=== PATIENT | female | born 1970 | race Caucasian/White ===

== ENCOUNTER 2018-12-08 22:40 | Observation (INO) | payer OTHER ==
[~2018-12-08] VITALS: Ht 180.3 cm; Wt 83.9 kg
[2018-12-08 22:45] VITALS: BP_SYST 162
[2018-12-08 23:27] LABS: BASOPHILS % (AUTO) 0.2 % (0.0-2.0); EOSINOPHILS # (AUTO) 0.2 K/uL (0.0-0.4); EOSINOPHILS % (AUTO) 2.4 % (0.0-4.0); HEMATOCRIT 43.5 % (36-48); HEMOGLOBIN 14.9 g/dL (12.0-16.0); LYMPHOCYTES # (AUTO) 0.8 K/uL (1.0-5.5); LYMPHOCYTES % (AUTO) 10.3 % (20.5-51.5); MEAN CORPUSCULAR HEMOGLOBIN 32 pg (27-31); MEAN CORPUSCULAR HGB CONC 34 % (32-36); MEAN CORPUSCULAR VOLUME 92 fL (79.0-98.0); MONOCYTES % (AUTO) 0.3 % (1.7-9.3); NEUTROPHILS # (AUTO) 6.9 K/uL (1.8-7.7); NEUTROPHILS % (AUTO) 86.8 % (40.0-70.0); PLATELET COUNT (AUTO) 228 K/uL (130-430)
[2018-12-08 23:47] LABS: CALCIUM 8.9 mg/dL (8.4-11.0); CREATININE 0.81 mg/dL (0.55-1.30); POTASSIUM 3.6 mmol/L (3.5-5.1)
[2018-12-08 23:51] LABS: ALBUMIN 3.9 g/dL (3.4-4.8); TOTAL BILIRUBIN 0.6 mg/dL (0.0-1.0)
[2018-12-09] VITALS (7 sets, daily range): BP systolic 112–158
[2018-12-09] MEDS ORDERED: HYDROcodone/ACETAMIN 5-325 MG TAB (NORCO/ VICODIN) PO ONE (00:15)
[2018-12-09] MEDS ORDERED: ONDANSETRON 4 MG ODT TAB PO ONE ×2 (00:15→01:00)
[2018-12-09] MEDS ORDERED: ASPIRIN 325 MG TABLET PO ONE (00:30)
[2018-12-09] MEDS ORDERED: MORPHINE 2 MG/ML INJ. SYRINGE IVP PRN (07:30)
[2018-12-09] MEDS ORDERED: IPRATROPIUM/ALBUTEROL SULFATE 3 ML AMPUL.NEB (DUONEB) INH PRN (07:30)
[2018-12-09] MEDS ORDERED: ALBUTEROL SULFATE 0.083% 2.5 MG/3 ML VIAL.NEB INH PRN (07:30)
[2018-12-09] MEDS: NACL 0.9% 1,000 ML IV SCH ×2 (08:33→15:50)
[2018-12-09] MEDS: ASPIRIN 81 MG TAB.CHEW PO SCH (08:33)
[2018-12-09] MEDS: MORPHINE 4 MG/ML INJ. SYRINGE IVP PRN ×2 (08:34→13:01)
[2018-12-09 09:01] LABS: BASOPHILS % (AUTO) 0.2 % (0.0-2.0); EOSINOPHILS # (AUTO) 0.2 K/uL (0.0-0.4); EOSINOPHILS % (AUTO) 1.1 % (0.0-4.0); HEMATOCRIT 42.5 % (36-48); HEMOGLOBIN 14.3 g/dL (12.0-16.0); LYMPHOCYTES # (AUTO) 0.8 K/uL (1.0-5.5); LYMPHOCYTES % (AUTO) 5.4 % (20.5-51.5); MEAN CORPUSCULAR HEMOGLOBIN 31 pg (27-31); MEAN CORPUSCULAR HGB CONC 34 % (32-36); MEAN CORPUSCULAR VOLUME 92 fL (79.0-98.0); MONOCYTES # (AUTO) 0.6 K/uL (0.0-1.0); MONOCYTES % (AUTO) 3.9 % (1.7-9.3); NEUTROPHILS # (AUTO) 13.2 K/uL (1.8-7.7); NEUTROPHILS % (AUTO) 89.4 % (40.0-70.0); PLATELET COUNT (AUTO) 250 K/uL (130-430); RED BLOOD CELL COUNT(AUTO) 4.63 MIL/uL (4.2-6.2); RED CELL DISTRIBUTION WIDTH 14.1 % (9.0-15.0)
[2018-12-09 09:09] LABS: PROTHROMBIN TIME 10.2 SECS (9.5-12.5); WHITE BLOOD COUNT (AUTO) 14.8 K/uL (4.8-10.8)
[2018-12-09 09:19] LABS: ALANINE AMINOTRANSFERASE 102 U/L (12-78); ALBUMIN 3.7 g/dL (3.4-4.8); ANION GAP 9 (5-15); ASPARTATE AMINOTRANSFERASE 76 U/L (10-37); CALCIUM 9.1 mg/dL (8.4-11.0); CHLORIDE 102 mmol/L (98-107); CREATININE 0.81 mg/dL (0.55-1.30); GLUCOSE 106 mg/dL (70-99); POTASSIUM 3.9 mmol/L (3.5-5.1); SODIUM SERUM 140 mmol/L (136-145); TOTAL BILIRUBIN 0.6 mg/dL (0.0-1.0); UREA NITROGEN, BLOOD 13 mg/dL (8-21)
[2018-12-09 09:22] LABS: GFR AFRICAN AMERICAN 97 mL/min (>90)
[2018-12-09 10:17] LABS: CHOLESTEROL 187 mg/dL (<200); HDL CHOLESTEROL 39 mg/dL (>55); LDL CHOLESTEROL 124 mg/dL (<100); TRIGLYCERIDES 126 mg/dL (30-150)
[2018-12-09] MEDS: metroNIDAZOLE 500 mg/NS 100 ML IV SCH ×2 (11:32→18:56)
[2018-12-09] MEDS: ONDANSETRON HCL 4 MG/2 ML VIAL IVP PRN ×2 (14:15→18:59)
[2018-12-09] MEDS: ACETAMINOPHEN 325 MG TABLET PO PRN (23:45)
[2018-12-10] MEDS: NACL 0.9% 1,000 ML IV SCH (00:01)
[2018-12-10] MEDS: metroNIDAZOLE 500 mg/NS 100 ML IV SCH ×2 (03:04→11:51)
[2018-12-10 07:10] LABS: BASOPHILS % (AUTO) 0.2 % (0.0-2.0); EOSINOPHILS # (AUTO) 0.2 K/uL (0.0-0.4); EOSINOPHILS % (AUTO) 2.2 % (0.0-4.0); HEMATOCRIT 37.8 % (36-48); LYMPHOCYTES # (AUTO) 1.2 K/uL (1.0-5.5); LYMPHOCYTES % (AUTO) 11.2 % (20.5-51.5); MEAN CORPUSCULAR HEMOGLOBIN 32 pg (27-31); MEAN CORPUSCULAR HGB CONC 34 % (32-36); MEAN CORPUSCULAR VOLUME 92 fL (79.0-98.0); MONOCYTES # (AUTO) 0.7 K/uL (0.0-1.0); MONOCYTES % (AUTO) 6.4 % (1.7-9.3); NEUTROPHILS # (AUTO) 8.5 K/uL (1.8-7.7); PLATELET COUNT (AUTO) 223 K/uL (130-430); RED BLOOD CELL COUNT(AUTO) 4.11 MIL/uL (4.2-6.2); WHITE BLOOD COUNT (AUTO) 10.6 K/uL (4.8-10.8)
[2018-12-10 07:12] LABS: ALBUMIN 3.1 g/dL (3.4-4.8); CALCIUM 8.4 mg/dL (8.4-11.0); CREATININE 0.62 mg/dL (0.55-1.30); POTASSIUM 3.5 mmol/L (3.5-5.1); TOTAL BILIRUBIN 0.5 mg/dL (0.0-1.0)
[2018-12-10 08:06] VITALS: BP_SYST 143
[2018-12-10] MEDS: ASPIRIN 81 MG TAB.CHEW PO SCH (08:18)
[2018-12-10 09:07] LABS: HEMOGLOBIN A1C 5.5 % (4.8-5.6)
[2018-12-10 13:01] VITALS: BP_SYST 150
[2018-12-10] MEDS: ACETAMINOPHEN 325 MG TABLET PO PRN (15:09)
[2018-12-10] MEDS ORDERED: KETOROLAC TROMETHAMINE 15 MG VIAL IM ONE (16:45)
[2018-12-10 17:18] VITALS: BP_SYST 139
[2018-12-10 17:31] VITALS: BP_SYST 133
[2018-12-10] MEDS ORDERED: LEVO750T45 PO (17:43)
[2018-12-10] MEDS ORDERED: ALBU8.5H8 INH (17:44)
[2018-12-11 05:11] LABS: HEPATITIS A AB, IgM Negative (Negative); HEPATITIS B CORE AB, IgM Negative (Negative); HEPATITIS B SURFACE AG Negative (Negative)
== END 2018-12-10 18:55 | disposition home or self-care (01) ==
LOC: SED 22:40 → STU 12-09 03:25 → SED 12-09 03:25 → INTOOBSV 12-09 03:50 → STU 12-09 03:50
PROVIDERS: ADMIT Internal Medicine; ATTEND Internal Medicine Hospice and Palliative Medicine
DX: R07.89 Other chest pain (principal); R06.02 Shortness of breath; J40 Bronchitis, not specified as acute or chronic; R94.5 Abnormal results of liver function studies; Z98.891 History of uterine scar from previous surgery; Z90.710 Acquired absence of both cervix and uterus; Z90.49 Acquired absence of other specified parts of digestive tract
CPT/HCPCS: 36415 ×2; 71046; 76700; 80053 ×3; 80061; 80074; 83036; 83690; 84484; 85025 ×3; 85379; 85610; 93005 ×2; 93306; 93970; 94640; 96365; 96366 ×2; 96372; 96375; 96376; 99285; G0378; J1885; J1956 ×2; J2270; J2405; J3490; J7030; J7620; Q0162; J7613